=== PATIENT | female | born 1930 | race American Indian/Alaskan Native ===

== ENCOUNTER 2017-02-05 09:25 | Emergency (ER) | payer MEDICARE ==
[2017-02-05 10:57] LABS: Basophils % (Auto) 0.4 % (0.0-1.8); Eosinophils % (Auto) 3.3 % (0.0-4.3); Hematocrit 37.4 % (30.3-42.9); Mean Corpuscular HGB Conc 35 % (30-34); Mean Corpuscular Hemoglobin 30 pg (28-32); Mean Corpuscular Volume 87 fl (79-97); Platelet Count 250 K/mm3 (140-440); Red Blood Count 4.31 M/mm3 (3.65-5.03); Red Cell Distribution Width 13.7 % (13.2-15.2); White Blood Count 3.6 K/mm3 (4.5-11.0)
--- NOTE | 2017-02-05 11:04 | XRay Report ---
LEFT HIP, 2 VIEWS History: Left hip pain after fall. Findings: There is mild osteopenia. 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 No evidence for displaced fracture, dislocation or osteonecrosis. Impression: No acute injury is identified.
[2017-02-05 11:12] LABS: Alanine Aminotransferase 11 units/L (7-56); Albumin 3.7 g/dL (3.9-5); Albumin/Globulin Ratio 1.2 %; Alkaline Phosphatase 67 units/L (35-129); Anion Gap 17 mmol/L; Blood Urea Nitrogen 14 mg/dL (7-17); Calcium 9.2 mg/dL (8.4-10.2); Carbon Dioxide 24 mmol/L (22-30); Chloride 104.7 mmol/L (98-107); Glucose 98 mg/dL (65-100); Potassium 4.1 mmol/L (3.6-5.0); Sodium 142 mmol/L (137-145); Total Protein 6.9 g/dL (6.3-8.2)
[2017-02-05 11:17] LABS: INR 1.02 (0.87-1.13)
--- NOTE | 2017-02-05 11:18 | XRay Report ---
CHEST 2 VIEWS INDICATION: Fall. COMPARISON: 03/19 2015. FINDINGS: PA and lateral chest radiographs demonstrate normal cardiomediastinal silhouette. Lungs now clear with interval resolution of pleural fluid. Demineralized bones with slight thoracic kyphosis. CONCLUSION: No acute disease in the chest. Thank you for the opportunity to participate in this patient's care.
--- NOTE | 2017-02-05 12:05 | Cat Scan Report ---
CT HEAD WITHOUT CONTRAST INDICATION: Fall. COMPARISON: None similar. FINDINGS: Noncontrast head CT demonstrates symmetric, well age-appropriate ventricles and sulci. Mild periventricular white matter hypodensities. Minimal, benign bilateral basal ganglia calcifications. No acute infarct, hemorrhage, mass effect or midline shift. No abnormal extra axial fluid collections. Normal posterior fossa with preserved basilar cisterns. Bilateral cataract surgery. Slight leftward nasal septal bowing. Mild right mid ethmoid air cell opacification. Clear remainder imaged paranasal sinuses and mastoid air cells. Mild atherosclerotic ICA calcifications. Intact calvarium. Normal scalp. Few radiopaque dental material. CONCLUSION: No acute intracranial CT abnormality, as described. Thank you for the opportunity to participate in this patient's care.
--- NOTE | 2017-02-05 12:13 | Cat Scan Report ---
CT LUMBAR SPINE WITHOUT CONTRAST History: Back pain after fall. Technique: Helical CT without IV contrast. Sagittal and coronal reformatted images. Findings: Osteopenia is evident. There is normal height and alignment of the lumbar vertebra. No evidence for compression deformity, subluxation or bone lesion. Disc space height is preserved. Moderate osteoarthritic changes are identified in the facet joints at L4-5 and L5-S1. The remaining facet joints are within normal limits. The paraspinal soft tissues are unremarkable. 4 cm right renal cyst is partially imaged. Impression: Osteopenia. Mild degenerative changes. No acute injury is appreciated.
[2017-02-05 14:03] LABS: Bacteria,Urine 1+ /HPF (Negative); Bilirubin,Urine NEG (Negative); Blood,Urine NEG (Negative); Ketones,Urine NEG (Negative); Leukocyte Esterase,Urine LG (Negative); Mucus,Urine FEW /HPF; Nitrite,Urine NEG (Negative); Protein,Urine <15 mg/dL mg/dL (Negative); Urobilinogen,Urine < 2.0 mg/dL (<2.0)
[2017-02-05 14:24] VITALS: BP 158/68
[2017-02-05] MEDS ORDERED: ANTIVERT PO ONE (17:54)
--- NOTE | 2017-02-05 17:59 | Emergency Department Report ---
HPI - General Chief Complaint: Dizziness Time Seen by Provider: 02/05/17 17:40 - HPI HPI: Room 6 The patient is an 86-year-old female presenting with a chief complaint of dizziness. The patient states she developed intermittent vertigo 2 days ago. The patient states she has not noticed any relationship to change in position. Patient denies chest pain or shortness of breath. Patient states she has occasional headaches but not currently. The patient states 3 days ago she slipped and fell getting out of the shower. The patient states she's had left hip soreness since Location: [see above] Duration: 2-3 days Quality: Soreness, vertigo Severity: Moderate Modifying factors: [see above] Context: [see above] Mode of transportation: [not driving] ED Past Medical Hx - Past Medical History Previous Medical History?: Yes Hx Arthritis: Yes - Surgical History Past Surgical History?: Yes Additional Surgical History: Pt states she had a hysterectomy years ago. Bilateral cataract surgery - Family History Family history: no significant - Social History Smoking Status: Never Smoker Substance Use Type: None - Medications Home Medications: Home Medications Medication Instructions Recorded Confirmed Last Taken Type Azithromycin [Zithromax Z-MITCH] 250 mg PO DAILY #1 tab 03/19/15 Unknown Rx Ibuprofen [Motrin] 600 mg PO DAILY PRN 03/19/15 03/19/15 1 Day Ago History Naproxen Sodium [Aleve TAB] 220 mg PO BID PRN 03/19/15 03/19/15 1 Day Ago History Meclizine [Antivert] 25 mg PO TID PRN #20 tablet 02/05/17 Unknown Rx ED Review of Systems ROS: Stated complaint: FALL,DIZZY Other details as noted in HPI Comment: All other systems reviewed and negative Constitutional: denies: chills, fever Eyes: denies: eye pain, eye discharge ENT: denies: ear pain, throat pain Respiratory: denies: cough, shortness of breath, wheezing Cardiovascular: denies: chest pain, palpitations Endocrine: no symptoms reported Gastrointestinal: denies: abdominal pain, nausea, diarrhea Genitourinary: denies: urgency, dysuria, discharge Musculoskeletal: arthralgia, myalgia. denies: back pain, joint swelling Skin: denies: rash, lesions Neurological: headache, vertigo Psychiatric: denies: anxiety, depression Hematological/Lymphatic: denies: easy bleeding, easy bruising Physical Exam - Physical Exam Vital Signs: Vital Signs 02/05/17 02/05/17 09:53 14:23 Temperature 97.8 F 98.3 F Pulse Rate 67 60 Respiratory 18 19 Rate Blood Pressure 161/77 Blood Pressure 161/77 158/68 [Right] O2 Sat by Pulse 96 97 Oximetry Physical Exam: GENERAL: The patient is well-developed well-nourished female lying on stretcher not appearing to be in acute distress. [] HEENT: Normocephalic. Atraumatic. Extraocular motions are intact. Patient has moist mucous membranes. No nystagmus NECK: Supple. Trachea midline. No carotid bruits bilaterally CHEST/LUNGS: Clear to auscultation. There is no respiratory distress noted. HEART/CARDIOVASCULAR: Regular. There is no tachycardia. There is no gallop rub or murmur. ABDOMEN: Abdomen is soft, nontender. Patient has normal bowel sounds. There is no abdominal distention. SKIN: There is no rash. There is no edema. There is no diaphoresis. NEURO: The patient is awake, alert, and oriented. The patient is cooperative. The patient has no focal neurologic deficits. The patient has normal speech. Cranial nerves II through XII grossly intact, no drift, board turner is 5+/5 bilaterally. No dysmetria noted with [id number] bilaterallyThere is no evidence of acute injury. ED Course Vital Signs 02/05/17 02/05/17 09:53 14:23 Temperature 97.8 F 98.3 F Pulse Rate 67 60 Respiratory 18 19 Rate Blood Pressure 161/77 Blood Pressure 161/77 158/68 [Right] O2 Sat by Pulse 96 97 Oximetry ED Medical Decision Making - Lab Data Result diagrams: 02/05/17 10:30 02/05/17 10:30 Laboratory Tests 02/05/17 02/05/17 02/05/17 10:30 10:30 10:37 WBC 3.6 L RBC 4.31 Hgb 13.0 Hct 37.4 MCV 87 MCH 30 MCHC 35 H RDW 13.7 Plt Count 250 Lymph % (Auto) 27.4 [place] % (Auto) 13.0 H Eos % (Auto) 3.3 Baso % (Auto) 0.4 Lymph # 1.0 L [place] # 0.5 Eos # 0.1 Baso # 0.0 Seg Neutrophils % 55.9 Seg Neutrophils # 2.0 PT 13.9 INR 1.02 Sodium 142 Potassium 4.1 Chloride 104.7 Carbon Dioxide 24 Anion Gap 17 BUN 14 Creatinine 0.5 L Estimated GFR > 60 BUN/Creatinine Ratio 28.00 Glucose 98 Calcium 9.2 Total Bilirubin 0.70 AST 12 ALT 11 Alkaline Phosphatase 67 Total Protein 6.9 Albumin 3.7 L Albumin/Globulin Ratio 1.2 Urine Color Urine Turbidity Urine pH Ur Specific [place] Urine Protein Urine Glucose (UA) Urine Ketones Urine Blood Urine Nitrite Urine Bilirubin Urine Urobilinogen Ur Leukocyte Esterase Urine WBC (Auto) Urine RBC (Auto) U Epithel Cells (Auto) Urine Bacteria (Auto) Urine Mucus 02/05/17 13:55 WBC RBC Hgb Hct MCV MCH MCHC RDW Plt Count Lymph % (Auto) [place] % (Auto) Eos % (Auto) Baso % (Auto) Lymph # [place] # Eos # Baso # Seg Neutrophils % Seg Neutrophils # PT INR Sodium Potassium Chloride Carbon Dioxide Anion Gap BUN Creatinine Estimated GFR BUN/Creatinine Ratio Glucose Calcium Total Bilirubin AST ALT Alkaline Phosphatase Total Protein Albumin Albumin/Globulin Ratio Urine Color Yellow Urine Turbidity Slightly-cloudy Urine pH 7.0 Ur Specific [place] 1.013 Urine Protein <15 mg/dl Urine Glucose (UA) Neg Urine Ketones Neg Urine Blood Neg Urine Nitrite Neg Urine Bilirubin Neg Urine Urobilinogen < 2.0 Ur Leukocyte Esterase Lg Urine WBC (Auto) 16.0 H Urine RBC (Auto) 20.0 U Epithel Cells (Auto) 7.0 Urine Bacteria (Auto) 1+ Urine Mucus Few - EKG Data -: EKG Interpreted by Me EKG shows normal: sinus rhythm Rate: normal - EKG Data When compared to previous EKG there are: previous EKG unavailable Interpretation: other (PVC) - Radiology Data Radiology results: report reviewed (CT head, CT lumbar spine), image reviewed ( CT head, CT lumbar spine, left hip x-ray, chest x-ray) interpreted by me: Chest x-ray-no focal infiltrate, no pneumothorax Left hip x-ray-no acute fracture CT head, CT lumbar spine (read by radiologist)-no acute injuries seen - Differential Diagnosis central vertigo, peripheral vertigo, subdural hematoma Critical care attestation.: If time is entered above; I have spent that time in minutes in the direct care of this critically ill patient, excluding procedure time. ED Disposition Clinical Impression: Vertigo, Contusion of left hip Disposition: DC-01 TO HOME OR SELFCARE Is pt being admited?: No Does the pt Need Aspirin: No Condition: Stable Instructions: Vertigo (ED) Additional Instructions: Return to the emergency department immediately should you develop worsening symptoms, fever, inability to tolerate food or liquid or any other concerns. Prescriptions: Meclizine [Antivert] 25 mg PO TID PRN #20 tablet PRN Reason: Vertigo Referrals: PRIMARY CARE, [Primary Care Provider] - 3-5 Days MARLENY REDDY MD [Staff Physician] - 3-5 Days (Dr. Reddy is a neurologist. Please follow up with him for further evaluation) Time of Disposition: 18:21 (DC after IV fluids)
[2017-02-05] MEDS ORDERED: NACL 0.9% 500 ML 500 ML IV ONE (18:20)
== END 2017-02-05 19:53 | disposition home or self-care (01) ==
LOC: ED 09:25
DX: S70.02XA Contusion of left hip, initial encounter (principal); R42 Dizziness and giddiness; X58.XXXA Exposure to other specified factors, initial encounter; Y93.9 Activity, unspecified; Y92.9 Unspecified place or not applicable; Y99.9 Unspecified external cause status
CPT/HCPCS: 36415; 70450; 71020; 72131; 73502; 80053; 81001; 85025; 85610; 93005; 93010; 99285; J7040